=== PATIENT | female | born 1970 | race Caucasian/White ===

== ENCOUNTER 2016-05-12 05:24 | Emergency (ER) | payer OTHER ==
[2016-05-12 05:29] VITALS: BMI 31.6
[2016-05-12] MEDS ORDERED: TDAP Vaccine 0.5 mL Syr IM ONE (05:30)
[2016-05-12 05:35] VITALS: PULSE 68; RESP 18; TEMP 98.6; O2SAT 99
--- NOTE | 2016-05-12 05:58 | ED PDOC ---
Arrival/HPI - General Chief Complaint: Finger,Hand,&Wrist Time Seen by Provider: 05/12/16 05:30 Historian: Patient - History of Present Illness Narrative History of Present Illness (Text): 05/12/16 05:52 Rebecca Mooney is a 46 year old female who presents to the emergency department for evaluation of superficial abrasion to the left index finger. 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 Patient presents to the emergency department to get a tetanus shot. Denies any other complaints. Time/Duration: Prior to Arrival Symptom Onset: Sudden Symptom Course: Unchanged Activities at Onset: Light Context: Work Past Medical History - Provider Review Nursing Documentation Reviewed: Yes - Infectious Disease Hx of Infectious Diseases: None - Cardiac Hx Hypertension: Yes - Pulmonary Hx Respiratory Disorders: No - Neurological Hx Neurological Disorder: No - HEENT Hx HEENT Disorder: No - Renal Hx Renal Disorder: No - Endocrine/Metabolic Hx Endocrine Disorders: No - Hematological/Oncological Hx Blood Disorders: No - Integumentary Hx Dermatological Disorder: No - Musculoskeletal/Rheumatological Hx Musculoskeletal Disorders: No - Gastrointestinal Hx Gastrointestinal Disorders: No - Genitourinary/Gynecological Hx Genitourinary Disorders: No - Psychiatric Hx Psychophysiologic Disorder: No Hx Anxiety: No Hx Bipolar Disorder: No Hx Depression: No Hx Emotional Abuse: No Hx Hallucinations: No Hx Panic Disorder: No Hx Post Traumatic Stress Disorder: No Hx Psychosis: No Hx Physical Abuse: No Hx Schizophrenia: No Hx Sexual Abuse: No Hx Substance Use: No - Anesthesia Hx Anesthesia: No Hx Anesthesia Reactions: No Hx Malignant Hyperthermia: No Family/Social History - Physician Review Nursing Documentation Reviewed: Yes Family/Social History: No Known Family HX Smoking Status: Never Smoked Hx Alcohol Use: Yes Frequency of alcohol use: Socially Hx Substance Use: No Allergies/Home Meds Allergies/Adverse Reactions: Allergies No Known Allergies Allergy (Verified 05/12/16 05:29) Home Medications: Home Meds Medication Instructions Recorded Confirmed Lisinopril [Zestril] 10 mg PO DAILY 05/27/15 05/12/16 Review of Systems - Physician Review All systems were reviewed & negative as marked: Yes - Review of Systems Constitutional: Normal. absent: Fatigue, Fevers Respiratory: Normal. absent: SOB, Cough Cardiovascular: Normal. absent: Chest Pain Musculoskeletal: Other (left index finger ) Psychiatric: Normal Physical Exam Vital Signs Reviewed: Yes Vital Signs Temp Pulse Resp BP Pulse Ox 05/12/16 05:30 98.6 F 68 18 135/8 L 99 Temperature: Afebrile Blood Pressure: Normal Pulse: Regular Respiratory Rate: Normal Appearance: Positive for: Well-Appearing, Non-Toxic, Comfortable Pain Distress: None Mental Status: Positive for: Alert and Oriented X 3 - Systems Exam Head: Present: Atraumatic, Normocephalic Pupils: Present: PERRL Extroacular Muscles: Present: EOMI Conjunctiva: Present: Normal Neck: Present: Normal Range of Motion Respiratory/Chest: Present: Clear to Auscultation, Good Air Exchange. No: Respiratory Distress, Accessory Muscle Use Cardiovascular: Present: Regular Rate and Rhythm, Normal S1, S2. No: Murmurs Abdomen: Present: Normal Bowel Sounds. No: Tenderness, Distention, Peritoneal Signs Upper Extremity: Present: Other (superficial abrasions to left index figer ) Lower Extremity: Present: Normal Inspection. No: Edema Neurological: Present: GCS=15, CN II-XII Intact, Speech Normal Skin: Present: Warm, Dry, Normal Color. No: Rashes Psychiatric: Present: Alert, Oriented x 3, Normal Insight, Normal Concentration Medical Decision Making ED Course and Treatment: 05/12/16 05:59 Impression: A 46 year old female who presents to the emergency department for evaluation of superficial abrasion to left index finger. Plan: -- Boostrix -- Reassess and disposition Progress Notes: 05/12/16 06:00 On re-evaluation, patient feels better and is in no acute distress. Patient is stable for discharge. Patient was instructed to follow up with physician or return if symptoms worsen or new concerning symptoms arise. - Medication Orders Current Medication Orders: Discontinued Medications Tetanus/Reduced Diphtheria/Acell Pertussis (Boostrix Vaccine Inj) 0.5 ml IM .ONCE ONE Stop: 05/12/16 05:31 Last Admin: 05/12/16 05:40 Dose: 0.5 ML [facility] Immunization Data Document 05/12/16 05:40 URMILA (Rec: 05/12/16 05:40 URMILA [id number]) Immunization Data Vaccine Lot Number [id number] Vaccine Expiration Date 05/06/18 Site Given Left Deltoid Route Intramuscular Immunization Units ml - Scribe Statement The provider has reviewed the documentation as recorded by the Scribe Surjit Muthuraman Provider Attestation: All medical record entries made by the Micah were at my direction and personally dictated by me. I have reviewed the chart and agree that the record accurately reflects my personal performance of the history, physical exam, medical decision making, and the department course for this patient. I have also personally directed, reviewed, and agree with the discharge instructions and disposition. Disposition/Present on Arrival - Present on Arrival History of DVT/PE: No History of Uncontrolled Diabetes: No Urinary Catheter: No History of Decub. Ulcer: No History Surgical Site Infection Following: None - Disposition Diagnosis: Abrasion of finger, right Disposition: HOME/ ROUTINE Patient Problems: Current Active Problems Problem Status Diagnosed Abrasion of finger, right Acute Discharge Instructions (ExitCare): Abrasion (ED)
[2016-05-12 06:06] VITALS: BP 135/80
== END 2016-05-12 07:27 | disposition home or self-care (01) ==
LOC: ED 05:24
DX: S60.411A Abrasion of left index finger, initial encounter (principal); W22.8XXA Striking against or struck by other objects, initial encounter; Y93.F9 Activity, other caregiving; Y92.239 Unspecified place in hospital as the place of occurrence of the external cause; Y99.0 Civilian activity done for income or pay; Z23 Encounter for immunization

== ENCOUNTER 2018-04-04 04:00 | Emergency (ER) | payer OTHER ==
[2018-04-04 04:00] VITALS: BMI 29.4
[2018-04-04 04:12] VITALS: RESP 18; TEMP 98
[2018-04-04] MEDS ORDERED: Sodium Chloride 0.9% 1,000 ML IV SCH (05:15)
[2018-04-04 05:23] LABS: URINE BILIRUBIN NEGATIVE (NEGATIVE); URINE BLOOD NEGATIVE (NEGATIVE); URINE GLUCOSE (UA) NEGATIVE (NEGATIVE); URINE LEUKOCYTE ESTERASE NEGATIVE Leu/uL (NEGATIVE); URINE PROTEIN NEGATIVE mg/dL (<30 mg/dL); URINE UROBILINOGEN 0.2 E.U./dL (<1 E.U./dL)
[2018-04-04 05:24] LABS: URINE APPEARANCE CLEAR (CLEAR); URINE COLOR YELLOW (YELLOW)
[2018-04-04 05:32] LABS: BASO # 0.02 K/mm3 (0.0-2.0); BASO % 0.2 % (0.0-3.0); EOS # 0.4 (0.0-0.7); EOS % 4.6 % (1.5-5.0); HEMOGLOBIN 12.6 g/dL (12.0-16.0); LYMPH # 3.2 (1.2-3.4); LYMPH % 38.8 % (22.0-35.0); MEAN CORPUSCULAR HEMOGLOBIN 28.6 pg (25.0-35.0); MEAN CORPUSCULAR HGB CONC 32.6 g/dl (31.0-37.0); MONO # 0.4 (0.1-0.6); MONO % 4.8 % (1.0-6.0); RBC 4.4 10^6/uL (3.5-6.1); WHITE BLOOD COUNT 8.3 10^3/uL (4.5-11.0)
[2018-04-04 05:42] LABS: BLOOD UREA NITROGEN 10 mg/dL (7-21); CALCIUM 9.2 mg/dL (8.4-10.5); GFR NON-AFRICAN AMERICAN > 60
--- NOTE | 2018-04-04 06:14 | ED PDOC ---
Arrival/HPI - General Historian: Patient - History of Present Illness Narrative History of Present Illness (Text): 04/04/18 06:02 48 y/o female with PMH of disk herniation with radiculopathy presents to the ED with left flank throbbing pain for 5 days. It's intermittent, worsens with prolonged sitting, partially relieved with aleve/toradol. She denied bowel/urinary incontinence, focal neurological symptoms, loss of saddle sensation, fever, chills, rash, change in bowel movement. She admits to urinary frequency, urgency but denied dysurea. She denied h/o kidney stones. Patient states that today's pain is different from radiculopathy pain with no radiation to the back of the legs, it's more localized to the left flank below the ribs level. She denied chest pain, SOB, palpitations, headache, dizziness, hematuria. Time/Duration: < week Symptom Course: Worsening Quality: Throbbing Severity Level: 8 Activities at Onset: Light Context: Sitting, Standing <Basilio Herman - Last Filed: 04/04/18 06:30> <Alonso Pretty - Last Filed: 04/06/18 19:35> - General Chief Complaint: Back Pain Time Seen by Provider: 04/04/18 04:14 Past Medical History - Provider Review Nursing Documentation Reviewed: Yes - Travel History Have you recently traveled outside [place] w/in the past 3 mons?: No - Infectious Disease Hx of Infectious Diseases: None - Reproductive Currently : No - Cardiac Hx Hypertension: Yes - Pulmonary Hx Respiratory Disorders: No - Neurological Hx Neurological Disorder: No - HEENT Hx HEENT Disorder: No - Renal Hx Renal Disorder: No - Endocrine/Metabolic Hx Endocrine Disorders: No - Hematological/Oncological Hx Blood Disorders: No - Integumentary Hx Dermatological Disorder: No - Musculoskeletal/Rheumatological Hx Arthritis: Yes (general) - Gastrointestinal Hx Gastrointestinal Disorders: No - Genitourinary/Gynecological Hx Genitourinary Disorders: No - Psychiatric Hx Anxiety: No Hx Bipolar Disorder: No Hx Depression: No Hx Post Traumatic Stress Disorder: No Hx Schizophrenia: No Hx Substance Use: No - Anesthesia Hx Anesthesia: No Hx Anesthesia Reactions: No Hx Malignant Hyperthermia: No <Basilio Herman - Last Filed: 04/04/18 06:30> Family/Social History - Physician Review Nursing Documentation Reviewed: Yes Family/Social History: No Known Family HX Smoking Status: Never Smoked Hx Alcohol Use: Yes Hx Substance Use: No <MartínvickiBasilio - Last Filed: 04/04/18 06:30> Allergies/Home Meds <MartínvickiBasilio - Last Filed: 04/04/18 06:30> <Bryson Prettyont - Last Filed: 04/06/18 19:35> Allergies/Adverse Reactions: Allergies No Known Allergies Allergy (Verified 04/04/18 04:10) Home Medications: Home Meds Medication Instructions Recorded Confirmed Lisinopril [Zestril] 10 mg PO DAILY 05/27/15 04/04/18 Linaclotide [Linzess] 145 mcg PO DAILY PRN 03/18/17 04/04/18 Hyoscyamine Sulfate [Levsin] 0.145 mg PO Q4 PRN 03/29/17 04/04/18 Review of Systems - Physician Review All systems were reviewed & negative as marked: Yes - Review of Systems Constitutional: Normal Eyes: Normal ENT: Normal Respiratory: Normal Cardiovascular: Normal Gastrointestinal: Normal Genitourinary Female: Normal Musculoskeletal: Back Pain, Myalgias Skin: Normal Neurological: Normal Endocrine: Normal Hemo/Lymphatic: Normal Psychiatric: Normal <MartínvickiBasilio - Last Filed: 04/04/18 06:30> Physical Exam Vital Signs Reviewed: Yes Vital Signs Temp Pulse Resp BP Pulse Ox 04/04/18 04:11 98.0 F 86 18 138/81 99 Temperature: Afebrile Blood Pressure: Normal Pulse: Regular Respiratory Rate: Normal Appearance: Positive for: Well-Appearing, Non-Toxic, Comfortable Pain Distress: Moderate Mental Status: Positive for: Alert and Oriented X 3 - Systems Exam Head: Present: Atraumatic, Normocephalic Pupils: Present: PERRL Extroacular Muscles: Present: EOMI Conjunctiva: Present: Normal Ears: Present: Normal Mouth: Present: Moist Mucous Membranes Pharnyx: Present: Normal Nose (External): Present: Atraumatic Neck: Present: Normal Range of Motion Respiratory/Chest: Present: Clear to Auscultation, Good Air Exchange. No: Respiratory Distress, Accessory Muscle Use, Wheezes, Rhonchi Cardiovascular: Present: Regular Rate and Rhythm, Normal S1, S2. No: Murmurs Abdomen: Present: Normal Bowel Sounds. No: Tenderness, Distention Back: Present: Normal Inspection. No: CVA Tenderness, Midline Tenderness, Paraspinal Tenderness, Pain with Leg Raise Upper Extremity: Present: Normal Inspection. No: Cyanosis, Edema Lower Extremity: Present: Normal Inspection, NORMAL PULSES. No: Edema, CALF TENDERNESS, Tenderness Neurological: Present: GCS=15, CN II-XII Intact, Speech Normal Skin: Present: Warm, Dry. No: Rashes Psychiatric: Present: Alert, Oriented x 3, Normal Insight <Basilio Herman - Last Filed: 04/04/18 06:30> Vital Signs Temp Pulse Resp BP Pulse Ox 04/04/18 06:40 82 18 132/78 100 04/04/18 04:11 98.0 F 86 18 138/81 99 <Alonso Pretty - Last Filed: 04/06/18 19:35> Medical Decision Making - Lab Interpretations Lab Results: Urine Color Yellow (YELLOW) 04/04/18 04:55 Urine Appearance Clear (CLEAR) 04/04/18 04:55 Urine pH 6.0 (4.7-8.0) 04/04/18 04:55 Ur Specific Stow >= 1.030 (1.005-1.035) 04/04/18 04:55 Urine Protein Negative mg/dL (<30 mg/dL) 04/04/18 04:55 Urine Glucose (UA) Negative mg/dL (NEGATIVE) 04/04/18 04:55 Urine Ketones Negative mg/dL (NEGATIVE) 04/04/18 04:55 Urine Blood Negative (NEGATIVE) 04/04/18 04:55 Urine Nitrate Negative (NEGATIVE) 04/04/18 04:55 Urine Bilirubin Negative (NEGATIVE) 04/04/18 04:55 Urine Urobilinogen 0.2 E.U./dL (<1 E.U./dL) 04/04/18 04:55 Ur Leukocyte Esterase Negative Shamika/uL (NEGATIVE) 04/04/18 04:55 - RAD Interpretation Radiology Orders: 04/04/18 05:06 ABDOMEN & PELVIS [ABD & PELVIS W/O PO OR IV CONT] [CT] Stat - Medication Orders Current Medication Orders: Sodium Chloride (Sodium Chloride 0.9%) 1,000 mls @ 150 mls/hr IV .Q6H40M [facility] Last Admin: 04/04/18 05:27 Dose: Not Given Non-Admin Reason: Patient Refused Discontinued Medications Ketorolac Tromethamine (Toradol) 30 mg IVP STAT STA Stop: 04/04/18 05:09 Last Admin: 04/04/18 05:27 Dose: Not Given Non-Admin Reason: Patient Refused <VirgilBasilio - Last Filed: 04/04/18 06:30> ED Course and Treatment: 04/04/18 2:15 48 year old female presents to the ED for evaluation of left sided flank pain since 5 days. In agreement with resident note which contains more details about the patient. Patient seen and evaluated with resident. Came up with plan and treatment together. - Lab Interpretations Microbiology Results: Microbiology Results 04/04/18 04:55 Urine,Clean Catch Urine Culture - Final No Growth (<1,000 CFU/ML) Lab Results: Urine Color Yellow (YELLOW) 04/04/18 04:55 Urine Appearance Clear (CLEAR) 04/04/18 04:55 Urine pH 6.0 (4.7-8.0) 04/04/18 04:55 Ur Specific Stow >= 1.030 (1.005-1.035) 04/04/18 04:55 Urine Protein Negative mg/dL (<30 mg/dL) 04/04/18 04:55 Urine Glucose (UA) Negative mg/dL (NEGATIVE) 04/04/18 04:55 Urine Ketones Negative mg/dL (NEGATIVE) 04/04/18 04:55 Urine Blood Negative (NEGATIVE) 04/04/18 04:55 Urine Nitrate Negative (NEGATIVE) 04/04/18 04:55 Urine Bilirubin Negative (NEGATIVE) 04/04/18 04:55 Urine Urobilinogen 0.2 E.U./dL (<1 E.U./dL) 04/04/18 04:55 Ur Leukocyte Esterase Negative Shamika/uL (NEGATIVE) 04/04/18 04:55 - RAD Interpretation Radiology Orders: 04/04/18 05:06 ABDOMEN & PELVIS [ABD & PELVIS W/O PO OR IV CONT] [CT] Stat - Medication Orders Current Medication Orders: Discontinued Medications Sodium Chloride (Sodium Chloride 0.9%) 1,000 mls @ 150 mls/hr IV .Q6H40M [facility] Last Admin: 04/04/18 05:27 Dose: Not Given Non-Admin Reason: Patient Refused Ketorolac Tromethamine (Toradol) 30 mg IVP STAT STA Stop: 04/04/18 05:09 Last Admin: 04/04/18 05:27 Dose: Not Given Non-Admin Reason: Patient Refused <Alonso Pretty - Last Filed: 04/06/18 19:35> - PA / LICENSED DIRECT ENTRY MIDWIFE / Resident Statement / has reviewed & agrees with the documentation as recorded. / has examined the patient and agrees with the treatment plan. <Alonso Pretty - Last Filed: 04/06/18 19:35> Disposition/Present on Arrival - Present on Arrival Any Indicators Present on Arrival: No History of DVT/PE: No History of Uncontrolled Diabetes: No Urinary Catheter: No History of Decub. Ulcer: No History Surgical Site Infection Following: None - Disposition Have Diagnosis and Disposition been Completed?: Yes Disposition Time: 06:31 Patient Plan: Discharge <Basilio Herman - Last Filed: 04/04/18 06:30> <Alonso Pretty - Last Filed: 04/06/18 19:35> - Disposition Diagnosis: Low back pain Disposition: HOME/ ROUTINE Condition: STABLE Discharge Instructions (ExitCare): Low Back Pain in Adults Additional Instructions: follow up with your primary care doctor. Referrals: Dario Chen MD [Primary Care Provider] - Follow up with primary Forms: [employer] ([employer]), WORK NOTE
[2018-04-04 06:46] VITALS: BP 132/78; PULSE 82; O2SAT 100
--- NOTE | 2018-04-04 08:28 | CT ---
Date of service: 04/04/2018 PROCEDURE: CT Abdomen and Pelvis without intravenous contrast HISTORY: flank pain COMPARISON: None. TECHNIQUE: Without contrast.. Contrast dose: Radiation dose: Total exam DLP = 504.23 mGy-cm. This CT exam was performed using one or more of the following dose reduction techniques: Automated exposure control, adjustment of the mA and/or kV according to patient size, and/or use of iterative reconstruction technique. FINDINGS: LOWER THORAX: Unremarkable. LIVER: Unremarkable. No gross lesion or ductal dilatation. GALLBLADDER AND BILE DUCTS: Unremarkable. PANCREAS: Unremarkable. No gross lesion or ductal dilatation. SPLEEN: Unremarkable. ADRENALS: Unremarkable. No mass. KIDNEYS AND URETERS: Unremarkable. No hydronephrosis. No solid mass. VASCULATURE: Unremarkable. No aortic aneurysm. No aortic atherosclerotic calcification or mural plaque present. BOWEL: Unremarkable. No obstruction. No gross mural thickening. APPENDIX: Unremarkable. Normal appendix. PERITONEUM: Unremarkable. No free fluid. No free air. LYMPH NODES: Unremarkable. No enlarged lymph nodes. BLADDER: Unremarkable. REPRODUCTIVE: Hysterectomy BONES: No acute fracture. OTHER FINDINGS: The report concurs with the preliminary [facility] report IMPRESSION: No acute intra-abdominal abnormality
== END 2018-04-04 06:40 | disposition home or self-care (01) ==
LOC: ED 04:00
DX: M54.5 Low back pain (principal); I10 Essential (primary) hypertension